=== PATIENT | male | born 1980 | race Caucasian/White ===

== ENCOUNTER 2021-12-06 15:28 | Emergency (ER) | payer BC, SELFPAY ==
[2021-12-06 15:31] VITALS: BP 123/63; PULSE 74; RESP 18; TEMP 37; O2SAT 96; BMI 25.1
--- NOTE | 2021-12-06 15:50 | CRLHL7_ITS ---
For Patients: As a result of the Cures Act, medical imaging exams and procedure reports are released immediately into your electronic medical record. You may view this report before your referring provider. If you have questions, please contact your health care provider. Indication: Wound. Technique: Three views 2nd left digit. Comparison: None. Findings/Impression: No acute displaced fracture or malalignment. No soft tissue swelling. Joint spaces are maintained. Bony mineralization is age appropriate. Dictated by Saul Rosales MD @ 12/06/2021 4:54:08 PM (Electronically Signed)
--- NOTE | 2021-12-06 15:50 | ED_ITS ---
HPI - General Adult General Chief complaint: Unspecified Complaint, Adult Stated complaint: Wound bleeding on left pointer finger Time Seen by Provider: 12/06/21 15:32 History of Present Illness HPI narrative: This 41-year-old male comes in with an injury to his left index finger. He was at work using a hammer when someone bumped his the item he was pounding causing him to hit his left index finger instead. He has a laceration on the distal portion of the dorsal aspect of the left index finger with some swelling of the same portion of that finger. His tendon function is intact. Related Data Home Medications Medication Instructions Recorded Confirmed mertazapine 15 mg PO HS 12/06/21 12/06/21 Previous Rx's Medication Instructions Recorded ketorolac 10 mg tablet 10 mg PO Q8H 5 days #15 tabs 12/06/21 Allergies Allergy/AdvReac Type Severity Reaction Status Date / Time fresh water fish Allergy Severe Anaphylaxis Uncoded 12/06/21 15:40 Review of Systems Status of ROS: Reports: 10 or more systems reviewed and unremarkable except as noted in History and below Narrative: Constitutional: No fevers, no weight gain or loss. Eyes: No discharge. No vision changes. HENT: No congestion, no sore throat, no ear pain. Cardiovascular: No chest pain, no palpitations. Respiratory: No shortness of breath, no wheezes, no cough. Gastrointestinal: No abdominal pain, no vomiting, no diarrhea. Genitourinary: No dysuria, no hematuria. Musculoskeletal: Left distal index finger injury as described above. Skin: No rashes, no pruritis. Neurological: No dizziness, weakness, sensory change, speech change. Endo/Heme/Allergies: No bruising or bleeding. No polydipsia. Pysch: no suicidality, no anxiety, no insomnia. All other systems reviewed and are negative. PFSH PFSH Social History Smoking Status: Never smoker How often do you have a drink containing alcohol: monthly or less AUDIT-C Alcohol total score: 1 Non-prescribed substance use: denies use Exam Narrative: Exam Narrative: Constitutional: Well-developed, well-nourished, no acute distress. HEENT: Normocephalic, atraumatic. Neck: Normal range of motion. Nontender. Supple. Heart: Intact distal pulses. Lungs: No chest discomfort. No wheezes, rhonchi, or rales. Abdomen: Nontender. Back: Normal range of motion. Extremities: Laceration on the dorsal aspect of the left index finger extending from the base of the fingernail proximally about 2 cm. Tendon function is intact for both flexion and extension. Skin: Intact. No rash. Warm. No erythema or pallor. Neurologic: No altered sensation. No weakness. Alert and oriented. Psychiatric: No suicidality. No anxiety or depression. No insomnia. Nursing notes and vitals signs are reviewed. Const: Vital Signs, click to edit/add: Vital Signs - 24 hr 12/06/21 15:31 Temperature 98.6 F Pulse Rate [Right Pulse Oximeter] 74 Respiratory Rate 18 Blood Pressure [Ri ght Upper Arm] 123/63 Pulse Oximetry 96 Oxygen Delivery Me thod Room Air Course Vital Signs Vital signs: Initial Vital Signs Temperature 98.6 F 12/06/21 15:31 Temperature Source Temporal Artery Scan 12/06/21 15:31 Pulse Rate 74 12/06/21 15:31 Respiratory Rate 18 12/06/21 15:31 Blood Pressure 123/63 12/06/21 15:31 Blood Pressure Mean 83 12/06/21 15:31 Blood Pressure Position Sitting 12/06/21 15:31 Pulse Oximetry 96 12/06/21 15:31 Oxygen Delivery Method 12/06/21 15:31 Vital Signs Temperature 98.6 F 12/06/21 15:31 Pulse Rate 74 12/06/21 15:31 Respiratory Rate 18 12/06/21 15:31 Blood Pressure 123/63 12/06/21 15:31 Pulse Oximetry 96 12/06/21 15:31 Oxygen Delivery Method 12/06/21 15:31 Temperature 98.6 F 12/06/21 15:31 Pulse Rate 74 12/06/21 15:31 Respiratory Rate 18 12/06/21 15:31 Blood Pressure 123/63 12/06/21 15:31 Pulse Oximetry 96 12/06/21 15:31 Oxygen Delivery Method 12/06/21 15:31 Medical Decision Making MDM Narrative Medical decision making narrative: This patient comes in with an injury to his left index finger as described above. He was in significant discomfort such that he agreed to a digital block. This was administered using 1% lidocaine without epinephrine and brought relief to his injury. An x-ray image was obtained of this finger. By my review this shows no sign of fracture or dislocation. The patient's wound was cleansed and repaired with Dermabond. A Band-Aid was applied and then a stack splint for extra protection. Instructions were given regarding wound care. He received a prescription for some tablets of Toradol. Imaging Data XR R Index finger: My impression: No sign of fracture or dislocation. Discharge Plan Discharge Clinical Impression: Laceration, Contusion of finger of left hand Patient Disposition: Home, Self-Care Condition: Unchanged Additional Instructions: Keep wound clean and dry. Use splint as needed. Take medication as needed and directed. Follow up with MD or return if worsening. Prescriptions: New ketorolac 10 mg tablet 10 mg PO Q8H 5 Days Qty: 15 0RF No Action mertazapine 15 mg PO HS Follow Up/Referrals: Provider,Not a Local [Primary Care Provider] - Stand Alone Forms: CardioLogs Info Instructions
== END 2021-12-06 16:45 | disposition home or self-care (01) ==
PROVIDERS: Emergency Provider Emergency Medicine Emergency Medical Services
DX: S61.211A Laceration without foreign body of left index finger without damage to nail, initial encounter (principal); S60.022A Contusion of left index finger without damage to nail, initial encounter; W22.8XXA Striking against or struck by other objects, initial encounter; Y93.9 Activity, unspecified; Y92.89 Other specified places as the place of occurrence of the external cause; Y99.0 Civilian activity done for income or pay
CPT/HCPCS: 73140; 99283